=== PATIENT | male | born 1990 | race American Indian/Alaskan Native ===

== ENCOUNTER 2021-12-14 06:37 | Emergency (ER) | payer SELFPAY ==
[2021-12-14 07:44] VITALS: BP 148/95
[2021-12-14 08:40] LABS: Color,Urine Yellow (Yellow)
[2021-12-14 08:41] LABS: Bilirubin,Urine NEG (Negative); Blood,Urine SM (Negative); Mucus,Urine FEW /HPF; Protein,Urine <15 mg/dL mg/dL (Negative); Urobilinogen,Urine < 2.0 mg/dL (<2.0)
[2021-12-14] MEDS ORDERED: ONDANSETRON 4 MG/2 ML INJ IV ONE (09:28)
[2021-12-14] MEDS ORDERED: KETOROLAC 30 MG/1 ML INJ IV ONE (09:28)
[2021-12-14] MEDS ORDERED: SODIUM CHLORIDE 0.9% 1000 ML 1,000 ML IV ONE (09:28)
[2021-12-14] MEDS ORDERED: MORPHINE 4 MG/1 ML INJ IV ONE (09:28)
--- NOTE | 2021-12-14 10:20 | Emergency Department Report ---
ED Abdominal Pain HPI - General Chief Complaint: Abdominal Pain Stated Complaint: RT SIDE FLANK PAIN PUI?: No Time Seen by Provider: 12/14/21 08:48 Source: patient Mode of arrival: Ambulatory Limitations: No Limitations - History of Present Illness Initial Comments: 31 yo comes to ER with right flank pain. Complaint: flank pain -: Gradual, days(s) Location: R flank Severity scale (0 -10): 10 Quality: aching Consistency: constant Improves With: nothing Worsens With: nothing Associated Symptoms: denies other symptoms. denies: nausea, vomiting, diarrhea, fever, chills, constipation, dysuria, hematemesis, hematochezia, melena, hematuria, anorexia, syncope - Related Data Allergies Allergy/AdvReac Type Severity Reaction Status Date / Time No Known Allergies Allergy Verified 12/14/21 07:44 ED Review of Systems ROS: Stated complaint: RT SIDE FLANK PAIN Other details as noted in HPI Comment: All other systems reviewed and negative ED Past Medical Hx - Past Medical History Previous Medical History?: Yes Hx Hypertension: Yes - Surgical History Past Surgical History?: Yes - Family History Family history: no significant - Social History Smoking Status: Current Some Day Smoker Substance Use Type: Alcohol ED Physical Exam - General Limitations: No Limitations General appearance: alert, in no apparent distress - Head Head exam: Present: atraumatic, normocephalic - Eye Eye exam: Present: normal appearance - ENT ENT exam: Present: mucous membranes moist - Neck Neck exam: Present: normal inspection - Respiratory Respiratory exam: Present: normal lung sounds bilaterally. Absent: respiratory distress - Cardiovascular Cardiovascular Exam: Present: regular rate, normal rhythm. Absent: systolic murmur, diastolic murmur, rubs, gallop - GI/Abdominal GI/Abdominal exam: Present: soft, normal bowel sounds - Rectal Rectal exam: Present: deferred - Extremities Exam Extremities exam: Present: normal inspection - Back Exam Back exam: Present: normal inspection - Neurological Exam Neurological exam: Present: alert, oriented X3 - Psychiatric Psychiatric exam: Present: normal affect, normal mood - Skin Skin exam: Present: warm, dry, intact, normal color. Absent: rash ED Course Vital Signs 12/14/21 07:42 Temperature 97.9 F Pulse Rate 85 Respiratory 14 Rate Blood Pressure 148/95 [Left] O2 Sat by Pulse 100 Oximetry ED Medical Decision Making - Lab Data Result diagrams: 12/14/21 09:46 12/14/21 09:46 - Radiology Data Radiology results: report reviewed, image reviewed see report - Medical Decision Making Lab Results 12/14/21 12/14/21 12/14/21 Range/Units 08:08 09:46 09:46 WBC 10.8 (4.5-11.0) K/mm3 RBC 4.26 (3.65-5.03) M/mm3 Hgb 14.6 (11.8-15.2) gm/dl Hct 42.2 (35.5-45.6) % MCV 99 H (84-94) fl MCH 34 H (28-32) pg MCHC 35 H (32-34) % RDW 12.6 L (13.2-15.2) % Plt Count 252 (140-440) K/mm3 Lymph % (Auto) 15.7 (13.4-35.0) % [place] % (Auto) 6.1 (0.0-7.3) % Eos % (Auto) 0.2 (0.0-4.3) % Baso % (Auto) 0.5 (0.0-1.8) % Lymph # (Auto) 1.7 (1.2-5.4) K/mm3 [place] # (Auto) 0.7 (0.0-0.8) K/mm3 Eos # (Auto) 0.0 (0.0-0.4) K/mm3 Baso # (Auto) 0.1 (0.0-0.1) K/mm3 Seg Neutrophils % 77.5 H (40.0-70.0) % Seg Neutrophils # 8.4 H (1.8-7.7) K/mm3 Sodium 142 (137-145) mmol/L Potassium 4.2 (3.6-5.0) mmol/L Chloride 103.2 (98-107) mmol/L Carbon Dioxide 21 L (22-30) mmol/L Anion Gap 22 mmol/L BUN 4 L (9-20) mg/dL Creatinine 0.6 L (0.8-1.3) mg/dL Estimated GFR > 60 ml/min BUN/Creatinine Ratio 7 % Glucose 106 H (75-100) mg/dL Calcium 9.0 (8.4-10.2) mg/dL Indirect Bilirubin mg/dL AST (5-40) units/L ALT (7-56) units/L Albumin/Globulin Ratio % Urine Color Yellow (Yellow) Urine Turbidity Clear (Clear) Urine pH 7.0 (5.0-7.0) Ur Specific [place] 1.008 (1.003-1.030) Urine Protein <15 mg/dl (Negative) mg/dL Urine Glucose (UA) Neg (Negative) mg/dL Urine Ketones Neg (Negative) mg/dL Urine Blood Sm (Negative) Urine Nitrite Neg (Negative) Urine Bilirubin Neg (Negative) Urine Urobilinogen < 2.0 (<2.0) mg/dL Ur Leukocyte Esterase Neg (Negative) Urine WBC (Auto) 1.0 (0.0-6.0) /HPF Urine RBC (Auto) 18.0 (0.0-6.0) /HPF Urine Mucus Few /HPF 12/14/21 Range/Units 09:46 WBC (4.5-11.0) K/mm3 RBC (3.65-5.03) M/mm3 Hgb (11.8-15.2) gm/dl Hct (35.5-45.6) % MCV (84-94) fl MCH (28-32) pg MCHC (32-34) % RDW (13.2-15.2) % Plt Count (140-440) K/mm3 Lymph % (Auto) (13.4-35.0) % [place] % (Auto) (0.0-7.3) % Eos % (Auto) (0.0-4.3) % Baso % (Auto) (0.0-1.8) % Lymph # (Auto) (1.2-5.4) K/mm3 [place] # (Auto) (0.0-0.8) K/mm3 Eos # (Auto) (0.0-0.4) K/mm3 Baso # (Auto) (0.0-0.1) K/mm3 Seg Neutrophils % (40.0-70.0) % Seg Neutrophils # (1.8-7.7) K/mm3 Sodium (137-145) mmol/L Potassium (3.6-5.0) mmol/L Chloride (98-107) mmol/L Carbon Dioxide (22-30) mmol/L Anion Gap mmol/L BUN (9-20) mg/dL Creatinine (0.8-1.3) mg/dL Estimated GFR ml/min BUN/Creatinine Ratio % Glucose (75-100) mg/dL Calcium (8.4-10.2) mg/dL Indirect Bilirubin -1.7 mg/dL AST 293 H (5-40) units/L ALT 66 H (7-56) units/L Albumin/Globulin Ratio 0.6 % Urine Color (Yellow) Urine Turbidity (Clear) Urine pH (5.0-7.0) Ur Specific [place] (1.003-1.030) Urine Protein (Negative) mg/dL Urine Glucose (UA) (Negative) mg/dL Urine Ketones (Negative) mg/dL Urine Blood (Negative) Urine Nitrite (Negative) Urine Bilirubin (Negative) Urine Urobilinogen (<2.0) mg/dL Ur Leukocyte Esterase (Negative) Urine WBC (Auto) (0.0-6.0) /HPF Urine RBC (Auto) (0.0-6.0) /HPF Urine Mucus /HPF Vital Signs 12/14/21 07:42 Temperature 97.9 F Pulse Rate 85 Respiratory 14 Rate Blood Pressure 148/95 [Left] O2 Sat by Pulse 100 Oximetry 1130 left ama- would not stay for findings; arguing with nursing staff - Differential Diagnosis ro stone Critical care attestation.: If time is entered above; I have spent that time in minutes in the direct care of this critically ill patient, excluding procedure time. ED Disposition Clinical Impression: Flank pain Disposition: 07 LEFT AGAINST MEDICAL ADVICE Is pt being admited?: No Does the pt Need Aspirin: No Condition: Stable Referrals: RAFA STRONG MD [Primary Care Provider] - 3-5 Days Time of Disposition: 11:35
[2021-12-14 10:22] LABS: Basophils # (Auto) 0.1 K/mm3 (0.0-0.1); Basophils % (Auto) 0.5 % (0.0-1.8); Eosinophils % (Auto) 0.2 % (0.0-4.3); Hematocrit 42.2 % (35.5-45.6); Hemoglobin 14.6 gm/dl (11.8-15.2); Lymphocytes # (Auto) 1.7 K/mm3 (1.2-5.4); Lymphocytes % (Auto) 15.7 % (13.4-35.0); Mean Corpuscular HGB Conc 35 % (32-34); Mean Corpuscular Volume 99 fl (84-94); Monocytes # (Auto) 0.7 K/mm3 (0.0-0.8); Monocytes % (Auto) 6.1 % (0.0-7.3); Platelet Count 252 K/mm3 (140-440); Red Blood Count 4.26 M/mm3 (3.65-5.03); Red Cell Distribution Width 12.6 % (13.2-15.2)
--- NOTE | 2021-12-14 10:33 | Cat Scan Report ---
CT ABDOMEN AND PELVIS WITHOUT CONTRAST INDICATION / CLINICAL INFORMATION: flank pain. TECHNIQUE: Axial CT images were obtained through the abdomen and pelvis without IV contrast. All CT scans at this location are performed using CT dose reduction for ALARA by means of automated exposure control. COMPARISON: None available. FINDINGS: LOWER CHEST: No significant abnormality. LIVER: No significant abnormality. GALLBLADDER: No significant abnormality. BILE DUCTS: No significant abnormality. PANCREAS: No significant abnormality. SPLEEN: No significant abnormality. ADRENALS: No significant abnormality. RIGHT KIDNEY / URETER: No significant abnormality. LEFT KIDNEY / URETER: No significant abnormality. STOMACH / SMALL BOWEL: No significant abnormality. COLON: No significant abnormality. APPENDIX: No significant abnormality. PERITONEUM: No free fluid. No free air. No fluid collection. LYMPH NODES: No significant adenopathy. AORTA / ARTERIES: No significant abnormality. IVC / VEINS: No significant abnormality. URINARY BLADDER: No significant abnormality. REPRODUCTIVE ORGANS: No significant abnormality. ADDITIONAL FINDINGS: None. SKELETAL SYSTEM: There is a intramedullary rafat in the left femur. No aggressive osseous lesion. Minim al retrolisthesis of L5 on S1. IMPRESSION: 1. No acute abnormality to account for patient's pain. No hydronephrosis or stones identified. Signer Name: Josh Epperson MD Signed: 12/14/2021 10:28 AM Workstation Name: [id number]
[2021-12-14 10:46] LABS: Blood Urea Nitrogen 4 mg/dL (9-20); Hemolysis Index 181
[2021-12-14 11:00] LABS: BUN/Creatinine Ratio 7
[2021-12-14 11:34] LABS: Albumin 4.6 g/dL (3.9-5)
[2021-12-14 12:05] LABS: Bilirubin,Direct < 0.2 mg/dL (0-0.2)
[2021-12-14 12:08] LABS: Alanine Aminotransferase 26 units/L (7-56)
== END 2021-12-14 11:23 | disposition left against medical advice (07) ==
LOC: ED 06:37
DX: R10.31 Right lower quadrant pain (principal); F17.200 Nicotine dependence, unspecified, uncomplicated; F10.20 Alcohol dependence, uncomplicated; I10 Essential (primary) hypertension
CPT/HCPCS: 36415; 74176; 80048; 80076; 81001; 85025; 96361; 96374; 96375; 99284; J1885; J2270; J2405; J7030; Q0162

== ENCOUNTER 2021-12-26 15:03 | Emergency (ER) | payer SELFPAY ==
--- NOTE | 2021-12-26 16:05 | Emergency Department Report ---
ED Psych HPI - General Chief Complaint: Psych Stated Complaint: RAVINDER Source: patient Mode of arrival: Ambulatory - History of Present Illness Initial Comments: 31-year-old black male with a past medical history of hypertension presents to the emergency department for mental health evaluation. Mother states that for the past few days, patient has been paranoid, having panic attacks, and hearing voices. She states that patient has been afraid to be alone and talking to voices that were are not there on the phone. She states that patient had similar episode when he was 18 years old but does not have any formal diagnosis. Patient states that he feels like he is dehydrated and has had some chest pain and nausea. He denies shortness of breath, dizziness, vomiting, diaphoresis. Patient denies SI and HI. Patient states that he cannot feel his body from his waist down and admits that he has smoking marijuana today which he does not usually do. MD Complaint: other (Paranoia and auditory hallucination) -: Gradual, days(s) (2-3) Associated Psychiatric Symptoms: auditory hallucinations, delusions History of same: Yes Quality: intermittent Associated Symptoms: nausea Treatments Prior to Arrival: none - Related Data Previous Rx's Medication Instructions Recorded Last Taken Type OLANzapine [ZyPREXA] 5 mg PO QHS 30 Days #30 12/27/21 Unknown Rx traZODone [Desyrel] 50 mg PO QHS 30 Days #30 tab 12/27/21 Unknown Rx Allergies Allergy/AdvReac Type Severity Reaction Status Date / Time No Known Allergies Allergy Verified 12/14/21 07:44 ED Review of Systems ROS: Stated complaint: RAVINDER Other details as noted in HPI ED Past Medical Hx - Past Medical History Hx Hypertension: Yes - Social History Smoking Status: Current Some Day Smoker Substance Use Type: Alcohol - Medications Home Medications: Home Medications Medication Instructions Recorded Confirmed Last Taken Type OLANzapine [ZyPREXA] 5 mg PO QHS 30 Days #30 12/27/21 Unknown Rx traZODone [Desyrel] 50 mg PO QHS 30 Days #30 tab 12/27/21 Unknown Rx ED Physical Exam - General Limitations: No Limitations ED Course Vital Signs 12/26/21 12/26/21 12/26/21 15:29 19:30 20:37 Temperature 98.5 F 97.9 F Pulse Rate 118 H 77 Respiratory 16 20 Rate Blood Pressure 155/105 125/78 [Left] O2 Sat by Pulse 98 100 99 Oximetry 12/27/21 12/27/21 02:40 12:00 Temperature 97.7 F 98.7 F Pulse Rate 65 63 Respiratory 16 18 Rate Blood Pressure 139/105 149/94 [Left] O2 Sat by Pulse 100 100 Oximetry ED Medical Decision Making - Lab Data Result diagrams: 12/26/21 16:03 12/26/21 16:03 - Medical Decision Making Patient was managed and treated per Dr. Jimenez and Jose R, please refer to their note for details. Critical care attestation.: If time is entered above; I have spent that time in minutes in the direct care of this critically ill patient, excluding procedure time. ED Disposition Clinical Impression: Noncompliance with medication regimen Psychosis Qualifiers: Psychosis type: unspecified psychosis type Qualified Code(s): F29 - Unspecified psychosis not due to a substance or known physiological condition Schizophrenia Qualifiers: Schizophrenia type: unspecified Qualified Code(s): F20.9 - Schizophrenia, unspecified Disposition: 01 HOME / SELF CARE / HOMELESS Is pt being admited?: No Does the pt Need Aspirin: No Condition: Stable Instructions: Schizophrenia Additional Instructions: Professional and Agency Contacts To help Resolve Crises(03/04) [place] Crisis Line: Suicide Prevention Line: Crisis Text Line: Text START to [phone] Emergency: 911 Outpatient COMMUNITY Behavioral Health Resources: [place]: [facility] [address] [place], [place] [address] [facility] [address] [place] [address] [place]: [facility] - [address] [place] [address] Monday thru Monday - 8am - 5pm [place]: [facility] Address: [address], [place] [address] [place]: [facility] Address: [address] [place] [address] Monday thru Monday- 7am-2pm [facility] Address: [address], [place] [address] Monday thru Monday: 8:30AM-5PM Prescriptions: traZODone [Desyrel] 50 mg PO QHS 30 Days #30 tab OLANzapine [ZyPREXA] 5 mg PO QHS 30 Days #30 Referrals: RAFA STRONG MD [Primary Care Provider] - 3-5 Days
--- NOTE | 2021-12-26 16:24 | XRay Report ---
CHEST 2 VIEWS INDICATION / CLINICAL INFORMATION: chest pain. COMPARISON: None available. FINDINGS: SUPPORT DEVICES: None. HEART / MEDIASTINUM: No significant abnormality. LUNGS / PLEURA: No significant pulmonary or pleural abnormality. No pneumothorax. ADDITIONAL FINDINGS: No significant additional findings. IMPRESSION: 1. No acute findings. Signer Name: Peter Bruno MD Signed: 12/26/2021 4:20 PM Workstation Name: [id number]
[2021-12-26 17:25] LABS: Basophils # (Auto) 0.1 K/mm3 (0.0-0.1); Basophils % (Auto) 0.6 % (0.0-1.8); Eosinophils % (Auto) 0.3 % (0.0-4.3); Hematocrit 38.6 % (35.5-45.6); Hemoglobin 13.3 gm/dl (11.8-15.2); Lymphocytes # (Auto) 1.6 K/mm3 (1.2-5.4); Lymphocytes % (Auto) 14.4 % (13.4-35.0); Mean Corpuscular HGB Conc 34 % (32-34); Mean Corpuscular Volume 100 fl (84-94); Monocytes # (Auto) 0.8 K/mm3 (0.0-0.8); Monocytes % (Auto) 7.5 % (0.0-7.3); Platelet Count 206 K/mm3 (140-440); Red Blood Count 3.87 M/mm3 (3.65-5.03); Red Cell Distribution Width 12.7 % (13.2-15.2)
[2021-12-26 18:38] LABS: BUN/Creatinine Ratio 8; Blood Urea Nitrogen 6 mg/dL (9-20); Calcium 9.8 mg/dL (8.4-10.2); Hemolysis Index 26
[2021-12-26 20:57] LABS: Amphetamine Screen,Urine PRESUMPTIVE NEGATIVE; Benzodiazepines Screen,Urine PRESUMPTIVE NEGATIVE; Cannabinoid Screen,Urine PRESUMPTIVE POSITIVE; Cocaine Screen,Urine PRESUMPTIVE NEGATIVE; Methadone Screen,Urine PRESUMPTIVE NEGATIVE; Opiate Screen,Urine PRESUMPTIVE NEGATIVE
[2021-12-26 21:14] LABS: Bacteria,Urine 1+ /HPF (Negative); Bilirubin,Urine NEG (Negative); Blood,Urine MOD (Negative); Color,Urine Yellow (Yellow); Mucus,Urine 3+ /HPF
[2021-12-26] MEDS ORDERED: LORazepam 1 MG TAB PO ONE (22:43)
--- NOTE | 2021-12-26 23:30 | Emergency Department Report ---
ED Psych HPI - General Chief Complaint: Psych Stated Complaint: MH EVAL Source: patient Mode of arrival: Ambulatory - History of Present Illness Initial Comments: 31-year-old black male with a past medical history of hypertension presents to the emergency department for mental health evaluation. Mother states that for the past few days, patient has been paranoid, having panic attacks, and hearing voices. She states that patient has been afraid to be alone and talking to voices that were are not there on the phone. She states that patient had similar episode when he was 18 years old but does not have any formal diagnosis. Patient states that he feels like he is dehydrated and has had some chest pain and nausea. He denies shortness of breath, dizziness, vomiting, diaphoresis. Patient denies SI and HI. Patient states that he cannot feel his body from his waist down and admits that he has smoking marijuana today which he does not usually do. -: Gradual, week(s) Associated Psychiatric Symptoms: depression, racing thoughts, auditory hallu cinations Quality: constant Improves With: none Worsens With: none Associated Symptoms: nausea Treatments Prior to Arrival: none - Related Data Previous Rx's Medication Instructions Recorded Last Taken Type OLANzapine [ZyPREXA] 5 mg PO QHS 30 Days #30 12/27/21 Unknown Rx traZODone [Desyrel] 50 mg PO QHS 30 Days #30 tab 12/27/21 Unknown Rx Allergies Allergy/AdvReac Type Severity Reaction Status Date / Time No Known Allergies Allergy Verified 12/14/21 07:44 ED Review of Systems ROS: Stated complaint: EVAL Other details as noted in HPI Comment: Unobtainable due to pts medical conditions ED Past Medical Hx - Past Medical History Hx Hypertension: Yes - Social History Smoking Status: Never Smoker Substance Use Type: None - Medications Home Medications: Home Medications Medication Instructions Recorded Confirmed Last Taken Type OLANzapine [ZyPREXA] 5 mg PO QHS 30 Days #30 12/27/21 Unknown Rx traZODone [Desyrel] 50 mg PO QHS 30 Days #30 tab 12/27/21 Unknown Rx ED Physical Exam - General Limitations: No Limitations General appearance: alert, anxious - Head Head exam: Present: atraumatic, normocephalic - Eye Eye exam: Present: normal appearance - ENT ENT exam: Present: mucous membranes moist - Neck Neck exam: Present: normal inspection - Respiratory Respiratory exam: Present: normal lung sounds bilaterally. Absent: respiratory distress - Cardiovascular Cardiovascular Exam: Present: regular rate, normal rhythm. Absent: systolic murmur, diastolic murmur, rubs, gallop - GI/Abdominal GI/Abdominal exam: Present: soft, normal bowel sounds - Rectal Rectal exam: Present: deferred - Extremities Exam Extremities exam: Present: normal inspection - Back Exam Back exam: Present: normal inspection - Neurological Exam Neurological exam: Present: alert, oriented X3 - Psychiatric Psychiatric exam: Present: normal affect, normal mood - Expanded Psychiatric Exam Expanded Focused psych exam: Present: paranoid, restlessness - Skin Skin exam: Present: warm, dry, intact, normal color. Absent: rash ED Course Vital Signs 12/26/21 12/26/21 12/26/21 15:29 19:30 20:37 Temperature 98.5 F 97.9 F Pulse Rate 118 H 77 Respiratory 16 20 Rate Blood Pressure 155/105 125/78 [Left] O2 Sat by Pulse 98 100 99 Oximetry 12/27/21 12/27/21 02:40 12:00 Temperature 97.7 F 98.7 F Pulse Rate 65 63 Respiratory 16 18 Rate Blood Pressure 139/105 149/94 [Left] O2 Sat by Pulse 100 100 Oximetry ED Medical Decision Making - Lab Data Result diagrams: 12/26/21 16:03 12/26/21 16:03 Critical care attestation.: If time is entered above; I have spent that time in minutes in the direct care o f this critically ill patient, excluding procedure time. ED Disposition Clinical Impression: Noncompliance with medication regimen Psychosis Qualifiers: Psychosis type: unspecified psychosis type Qualified Code(s): F29 - Unspecified psychosis not due to a substance or known physiological condition Schizophrenia Qualifiers: Schizophrenia type: unspecified Qualified Code(s): F20.9 - Schizophrenia, unsp ecified Disposition: 01 HOME / SELF CARE / HOMELESS Is pt being admited?: No Does the pt Need Aspirin: No Condition: Stable Instructions: Schizophrenia Additional Instructions: Professional and Agency Contacts To help Resolve Crises(03/04) [place] Crisis Line: Suicide Prevention Line: Crisis Text Line: Text START to [phone] Emergency: 911 Outpatient COMMUNITY Behavioral Health Resources: [place]: [facility] [address] [place], [place] [address] [place]: [facility] [address] [place] [address] [place]: [facility] - [address] [place] [address] Monday thru Monday - 8am - 5pm [place]: [facility] Address: [address], [place] [address] [place]: [facility] Address: [address] [place] [address] Monday thru Monday- 7am-2pm [facility] Address: [address] [place] [address] Monday thru Monday: 8:30AM-5PM Prescriptions: traZODone [Desyrel] 50 mg PO QHS 30 Days #30 tab OLANzapine [ZyPREXA] 5 mg PO QHS 30 Days #30 Referrals: RAFA STRONG MD [Primary Care Provider] - 3-5 Days
[2021-12-27] MEDS ORDERED: LORazepam 1 MG TAB PO NR (04:00)
--- NOTE | 2021-12-27 09:26 | Consultation ---
History of Present Illness - Reason for Consult Consult date: 12/27/21 Reason for consult: hallucinations - History of Present Psychiatric Illness The patient is a 31 year old male with history of PTSD, and Schizophrenia. the patient was seen this morning. he is calm, alert and oriented x3. The patient reports having non-commanding auditory hallucination x 2 days; he reports that he stopped taking his psychotropic medications about 2 weeks ago. The patient states he does not like taking meds due to side effects. The patient denies any current suicidal/homicidal ideation. PAST PSYCHIATRIC HISTORY Diagnoses: PTSD, Schizophrenia Suicide attempts or Self-harm behavior: Yes Prior psychiatric hospitalizations: yes Substance Abuse history: Marijuana Previous psychiatric medications tried:Risperidone, Geodon Outpatient treatment: Unknown PAST MEDICAL HISTORY: unknown Family Psychiatric History: unknown SOCIAL HISTORY Marital Status: Single Living Arrangements: Lives with family Employment Status: Unemployed Access to guns/weapons: None reported Education: 10th grade History of Abuse: None reported Legal History: None reported REVIEW OF SYSTEMS Constitutional: Negative for weight loss ENT: Negative for stridor Respiratory: Negative for cough or hemoptysis All other systems reviewed and are negative MENTAL STATUS EXAMINATION General Appearance and Behavior: Age appropriate, good hygiene, wearing ap propriate clothes, fair eye contact, cooperative Cooperation: cooperative Mood: Calm Affect and affective range: congruent with mood Thought Process:Goal directed Thought Content: Reality oriented Speech:Normal Suicidal Ideation: Denies Homicidal Ideation: Denies Hallucinations:Auditory- non-commanding Delusions: None Impulse Control: Limited Insight and Judgment: Limited insight and judgment, Memory: Normal Attention: Normal Orientation: Alert, oriented Assessment and Plan (1) Schizophrenia Treatment Plan DC 1013 Zyprexa 5 mg po QHS Trazodone 50mg po QHS Sitter: refer to medical Medical: per primary Disposition:Do not recommend acute psychiatric inpatient treatment. Audio Recording Engineer will provide patient with psychiatric out patient resources. Will sign off. Thanks Case staffed with Dr. Atkins Medications and Allergies Medications and Allergies Medications and Allergies Allergies Allergy/AdvReac Type Severity Reaction Status Date / Time No Known Allergies Allergy Verified 12/14/21 07:44 Home Medications Medication Instructions Recorded Confirmed Last Taken Type OLANzapine [ZyPREXA] 5 mg PO QHS 30 Days #30 12/27/21 Unknown Rx traZODone [Desyrel] 50 mg PO QHS 30 Days #30 tab 12/27/21 Unknown Rx Mental Status Exam - Vital signs Last Vital Signs Temp 97.7 F 12/27/21 02:40 Pulse 65 12/27/21 02:40 Resp 16 12/27/21 02:40 BP 139/105 12/27/21 02:40 Pulse Ox 100 12/27/21 02:40 Results Result Diagrams: 12/26/21 16:03 12/26/21 16:03 Abnormal lab results 12/26/21 12/26/21 12/26/21 Range/Units 16:03 16:03 16:03 WBC (4.5-11.0) K/mm3 MCV (84-94) fl MCH (28-32) pg RDW (13.2-15.2) % [place] % (Auto) (0.0-7.3) % Seg Neutrophils % (40.0-70.0) % Seg Neutrophils # (1.8-7.7) K/mm3 BUN 6 L (9-20) mg/dL Glucose 101 H (75-100) mg/dL Total Creatine Kinase (55-170) units/L Salicylates < 0.3 L (2.8-20.0) mg/dL Acetaminophen 5.0 L (10.0-30.0) ug/mL 12/26/21 12/26/21 Range/Units 16:03 16:07 WBC 11.2 H (4.5-11.0) K/mm3 MCV 100 H (84-94) fl MCH 34 H (28-32) pg RDW 12.7 L (13.2-15.2) % [place] % (Auto) 7.5 H (0.0-7.3) % Seg Neutrophils % 77.2 H (40.0-70.0) % Seg Neutrophils # 8.6 H (1.8-7.7) K/mm3 BUN (9-20) mg/dL Glucose (75-100) mg/dL Total Creatine Kinase 224 H (55-170) units/L Salicylates (2.8-20.0) mg/dL Acetaminophen (10.0-30.0) ug/mL All other labs normal.
--- NOTE | 2021-12-27 12:00 | Emergency Department Report ---
Blank Doc - Documentation Documentation: 31-year-old schizophrenic presenting with psychosis and psychiatric medication noncompliance. Patient does not endorse suicidal homicidal ideation. Patient was evaluated by mental health and deemed stable for discharge with meds and outpatient follow-up
--- NOTE | 2021-12-27 14:19 | Electrocardiograph Report ---
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
[2021-12-27 14:36] VITALS: BP 149/94
== END 2021-12-27 12:00 | disposition home or self-care (01) ==
LOC: ED 15:03
DX: F20.9 Schizophrenia, unspecified (principal); Z91.14 Patient's other noncompliance with medication regimen; I10 Essential (primary) hypertension; F17.200 Nicotine dependence, unspecified, uncomplicated; Z72.89 Other problems related to lifestyle; Z79.899 Other long term (current) drug therapy
CPT/HCPCS: 36415; 71046; 80048; 80307; 80320; 81001; 82550; 84484; 85025; 93005; 99285; G0480